=== PATIENT | female | born 1995 | race Caucasian/White ===

== ENCOUNTER 2016-03-26 01:15 | Emergency (ER) | payer OTHER ==
[~2016-03-26] VITALS: Ht 167.6 cm; Wt 59.0 kg
[~2016-03-26 01:15] MED LIST: ADDERALL20 MG PO; ALBUTEROL0.09 MG/A2 INH; ATIVAN1 MG PO; BACTRIM DS 8001 TA1 PO; BACTROBAN CREAM15 GM NAS; BIRTH CONTROL1 EAC1 PO; BIRTH CONTROL1 EACH PO; CIPRO250 MG PO; CLARITIN-D 10 M1 T24 PO; CRANBERRY250 MG PO; MOTRIN400 MG PO; MOTRIN600 MG PO; MOTRIN800 MG PO; PREDNICOT20 MG PO; PREDNISONE20 MG PO; PRILOSEC20 M2 PO; PYRIDIUM100 MG PO; TESSALON PERLE100 M1 PO; ULTRAM50 MG PO; VIBRAMYCIN100 MG PO; ZITHROMAX Z PA250 MG PO; ZITHROMAX250 MG PO; ZOFRAN4 MG PO; ZOLOFT50 MG PO; ZYRTEC10 M2 PO; ZYRTEC10 MG PO
[2016-03-26] MEDS ORDERED: PAXIL10 MG PO (01:29)
[2016-03-26] MEDS ORDERED: ADDERALL XR 3030 MG PO (01:29)
[2016-03-26 02:26] LABS: BASO % 0.2 % (0.0-1.0); EOS % 0.5 % (1.0-4.0); HEMATOCRIT 35.2 % (37.0-47.0); HEMOGLOBIN 12.3 g/dl (12.0-16.0); LYMPH # 2.4 10*3/uL (1.3-4.4); MEAN CORPUSCULAR HGB 29.4 pg (27.0-31.0); MEAN CORPUSCULAR HGB CONC 34.9 g/dl (33.0-37.0); MEAN PLATELET VOLUME 9.3 fl (9.6-12.3); MONO # 0.6 10*3/uL (0.1-1.0); MONO % 6.7 % (3.0-9.0); NEUT # 5.6 10*3/uL (2.3-7.9); NEUT % 64.4 % (47.0-73.0); PLATELET COUNT AUTOMATED 238 10*3/uL (130-400); RED BLOOD COUNT 4.19 10*6/uL (4.10-5.10); RED CELL DISTRI WIDTH 12.6 % (0-14.5); WHITE BLOOD COUNT 8.7 10*3/uL (4.8-10.8)
[2016-03-26 02:37] LABS: PROTHROMBIN TIME 10.9 SECONDS (9.0-12.4)
[2016-03-26 02:41] LABS: ALKALINE PHOSPHATASE 80 U/L (45-117); BILIRUBIN, TOTAL 0.9 mg/dl (0.2-1.0); BUN 8 mg/dl (7-24); CARBON DIOXIDE 27 mmol/L (21-32); CHLORIDE 108 mmol/L (98-107); EST GLOM FILT AFRICAN AMERICAN > 60 ml/min; GLUCOSE 80 mg/dL (65-99); POTASSIUM 3.4 mmol/L (3.5-5.1); SGOT/AST 15 IU/L (3-35); SGPT/ALT 21 U/L (12-78); SODIUM 145 mmol/L (136-145); TOTAL PROTEIN 7.3 gm/dL (6.4-8.2)
[2016-03-26] MEDS ORDERED: TYLENOL325 M2 PO (03:00)
== END 2016-03-26 03:46 | disposition home or self-care (01) ==
LOC: ED 01:15
PROVIDERS: Student in an Organized Health Care Education/Training Program
DX: I77.6 Arteritis, unspecified (principal); F41.9 Anxiety disorder, unspecified; Z88.0 Allergy status to penicillin; Z88.1 Allergy status to other antibiotic agents

== ENCOUNTER 2016-12-20 20:11 | Emergency (ER) | payer OTHER ==
[~2016-12-20] VITALS: Ht 165.1 cm; Wt 68.0 kg
[~2016-12-20 20:11] MED LIST changes: +ADDERALL XR 3030 MG PO; +PAXIL10 MG PO; +TYLENOL325 M2 PO
[2016-12-20] MEDS ORDERED: CYCLOBENZAPRINE5 M3 PO (21:46)
== END 2016-12-20 22:05 | disposition home or self-care (01) ==
LOC: ED 20:11
DX: S46.812A Strain of other muscles, fascia and tendons at shoulder and upper arm level, left arm, initial encounter (principal); Z79.899 Other long term (current) drug therapy; Z88.0 Allergy status to penicillin; Z88.1 Allergy status to other antibiotic agents; X50.9XXA Other and unspecified overexertion or strenuous movements or postures, initial encounter; Y93.89 Activity, other specified; Y92.69 Other specified industrial and construction area as the place of occurrence of the external cause; Y99.9 Unspecified external cause status

== ENCOUNTER 2017-01-29 18:14 | Emergency (ER) | payer OTHER ==
[~2017-01-29] VITALS: Wt 72.6 kg
[~2017-01-29 18:14] MED LIST changes: +CYCLOBENZAPRINE5 M3 PO
[2017-01-29 18:49] LABS: BASO % 0.1 % (0.0-1.0); EOS # 0.1 10*3/uL (0.0-0.4); EOS % 0.9 % (1.0-4.0); HEMATOCRIT 38.8 % (37.0-47.0); HEMOGLOBIN 13.2 g/dl (12.0-16.0); LYMPH % 29.1 % (27.0-41.0); MEAN CELL VOLUME 85.7 fl (81.0-99.0); MEAN CORPUSCULAR HGB 29.1 pg (27.0-31.0); MEAN PLATELET VOLUME 9.5 fl (9.6-12.3); MONO # 0.4 10*3/uL (0.1-1.0); MONO % 6.4 % (3.0-9.0); NEUT # 4.2 10*3/uL (2.3-7.9); NEUT % 63.2 % (47.0-73.0); PLATELET COUNT AUTOMATED 252 10*3/uL (130-400); RED BLOOD COUNT 4.53 10*6/uL (4.10-5.10); RED CELL DISTRI WIDTH 12.3 % (0-14.5); WHITE BLOOD COUNT 6.7 10*3/uL (4.8-10.8)
[2017-01-29 19:02] LABS: BUN 6 mg/dl (7-24); CHLORIDE 105 mmol/L (98-107); CREATININE 0.62 mg/dL (0.55-1.02); POTASSIUM 3.5 mmol/L (3.5-5.1); SODIUM 140 mmol/L (136-145)
[2017-01-29 19:05] LABS: ACT PARTIAL THROMBO TIME 23.5 SECONDS (20.8-31.5)
[2017-01-29] MEDS ORDERED: KEFLEX500 M1 PO (19:23)
== END 2017-01-29 19:20 | disposition home or self-care (01) ==
LOC: ED 18:14
PROVIDERS: Emergency Medicine
DX: S91.331A Puncture wound without foreign body, right foot, initial encounter (principal); R07.89 Other chest pain; Z79.899 Other long term (current) drug therapy; Z88.0 Allergy status to penicillin; Z88.1 Allergy status to other antibiotic agents; W22.8XXA Striking against or struck by other objects, initial encounter; Y93.89 Activity, other specified; Y92.89 Other specified places as the place of occurrence of the external cause; Y99.9 Unspecified external cause status

== ENCOUNTER 2017-03-22 16:39 | Emergency (ER) | payer OTHER ==
[~2017-03-22] VITALS: Ht 162.5 cm; Wt 74.4 kg
[~2017-03-22 16:39] MED LIST changes: +KEFLEX500 M1 PO
[2017-03-22] MEDS ORDERED: Motrin,Rufen800 MG PO (18:38)
== END 2017-03-22 21:14 | disposition home or self-care (01) ==
LOC: ED 16:39
DX: S40.011A Contusion of right shoulder, initial encounter (principal); F17.200 Nicotine dependence, unspecified, uncomplicated; Z88.0 Allergy status to penicillin; Z88.1 Allergy status to other antibiotic agents; Z79.899 Other long term (current) drug therapy; W01.0XXA Fall on same level from slipping, tripping and stumbling without subsequent striking against object, initial encounter; Y93.89 Activity, other specified; Y92.89 Other specified places as the place of occurrence of the external cause; Y99.8 Other external cause status

== ENCOUNTER → 2017-05-18 | Outpatient (CLI) | payer OTHER ==
[~2017-05-18] MED LIST changes: +Motrin,Rufen800 MG PO
[2017-05-18 11:55] LABS: ALBUMIN 3.5 gm/dl (3.1-4.5); ALKALINE PHOSPHATASE 84 U/L (45-117); BUN 7 mg/dl (7-24); CHLORIDE 106 mmol/L (98-107); CREATININE 0.73 mg/dL (0.55-1.02); POTASSIUM 3.7 mmol/L (3.5-5.1); SGOT/AST 19 IU/L (3-35); SGPT/ALT 20 U/L (12-78); SODIUM 138 mmol/L (136-145); TOTAL PROTEIN 7.4 gm/dL (6.4-8.2); URIC ACID 3.9 mg/dL (2.6-6.0)
[2017-05-19 08:09] LABS: RHEUMATOID ARTHRITIS FACTOR <10.0 IU/mL (0.0-13.9)
[2017-05-19 17:05] LABS: ANTI-SMOOTH MUSCLE ANTIBODY 10 Units (0-19)
== END | disposition home or self-care (01) ==
LOC: LAB 11:12
PROVIDERS: Pediatrics
DX: M25.50 Pain in unspecified joint (principal); M79.1 Myalgia

== ENCOUNTER → 2017-12-13 | Outpatient (CLI) | payer OTHER ==
[2017-12-13 11:02] LABS: BASO % 0.3 % (0.0-1.0); EOS # 0.1 10*3/uL (0.0-0.4); EOS % 1.2 % (1.0-4.0); HEMATOCRIT 41.8 % (37.0-47.0); HEMOGLOBIN 14.2 g/dl (12.0-16.0); LYMPH # 1.9 10*3/uL (1.3-4.4); MEAN CELL VOLUME 86.2 fl (81.0-99.0); MEAN CORPUSCULAR HGB 29.3 pg (27.0-31.0); MEAN PLATELET VOLUME 9.3 fl (9.6-12.3); MONO # 0.5 10*3/uL (0.1-1.0); MONO % 7.3 % (3.0-9.0); NEUT # 4.3 10*3/uL (2.3-7.9); NEUT % 62.9 % (47.0-73.0); PLATELET COUNT AUTOMATED 294 10*3/uL (130-400); RED BLOOD COUNT 4.85 10*6/uL (4.10-5.10); RED CELL DISTRI WIDTH 12.7 % (0-14.5); WHITE BLOOD COUNT 6.8 10*3/uL (4.8-10.8)
[2017-12-13 11:18] LABS: ALBUMIN 3.3 gm/dl (3.1-4.5); ALKALINE PHOSPHATASE 97 U/L (45-117); BUN 8 mg/dl (7-24); CHLORIDE 105 mmol/L (98-107); CHOLESTEROL 161 mg/dL (<200); CPK 38 U/L (26-192); CREATININE 0.72 mg/dL (0.55-1.02); HDL CHOLESTEROL 48 mg/dl (40-60); LDL CHOLESTEROL 94 mg/dL (9-159); POTASSIUM 4.1 mmol/L (3.5-5.1); SGOT/AST 14 IU/L (3-35); SGPT/ALT 19 U/L (12-78); SODIUM 140 mmol/L (136-145); T3 UPTAKE 30 % (31-39); TOTAL PROTEIN 7.1 gm/dL (6.4-8.2); TRIGLYCERIDES 94 mg/dl (<150); VLDL CHOLESTEROL 19 mg/dL (6-40)
[2017-12-13 11:24] LABS: THYROID STIM HORMONE (HS) 0.994 uIU/ml (0.358-4.75); THYROXINE (T4) TOTAL 12.5 ug/dl (4.8-13.9)
[2017-12-15 18:02] LABS: CREATININE, RANDOM URINE 88.9 mg/dL (Not Estab.); METANEPH-CREAT RATIO 0.4 (0.0-1.0)
== END | disposition home or self-care (01) ==
LOC: LAB 10:40
PROVIDERS: Pediatrics
DX: Z00.00 Encounter for general adult medical examination without abnormal findings (principal)

== ENCOUNTER → 2018-04-14 | Outpatient (CLI) | payer OTHER | END | disposition home or self-care (01) | LOC: LAB 16:40 | DX: N39.0 Urinary tract infection, site not specified (principal) ==

== ENCOUNTER → 2018-12-18 | Outpatient (CLI) | payer OTHER ==
[2018-12-18 17:50] LABS: BASO % 0.1 % (0.0-1.0); EOS # 0.1 10*3/uL (0.0-0.4); EOS % 0.6 % (1.0-4.0); HEMATOCRIT 41.6 % (37.0-47.0); HEMOGLOBIN 13.9 g/dl (12.0-16.0); LYMPH # 2.3 10*3/uL (1.3-4.4); LYMPH % 25.5 % (27.0-41.0); MEAN CELL VOLUME 88.5 fl (81.0-99.0); MEAN CORPUSCULAR HGB 29.6 pg (27.0-31.0); MEAN CORPUSCULAR HGB CONC 33.4 g/dl (33.0-37.0); MEAN PLATELET VOLUME 9.8 fl (9.6-12.3); MONO # 0.5 10*3/uL (0.1-1.0); MONO % 5.8 % (3.0-9.0); NEUT % 67.8 % (47.0-73.0); PLATELET COUNT AUTOMATED 302 10*3/uL (130-400); RED CELL DISTRI WIDTH 12.8 % (0-14.5); WHITE BLOOD COUNT 8.9 10*3/uL (4.8-10.8)
[2018-12-18 18:25] LABS: ALBUMIN 3.3 gm/dl (3.1-4.5); BUN 9 mg/dl (7-24); CHLORIDE 109 mmol/L (98-107); CREATININE 0.82 mg/dL (0.55-1.02); POTASSIUM 3.8 mmol/L (3.5-5.1); SGOT/AST 9 IU/L (3-35); SGPT/ALT 20 U/L (12-78); SODIUM 139 mmol/L (136-145); TOTAL PROTEIN 7.4 gm/dL (6.4-8.2)
[2018-12-18 18:30] LABS: ALKALINE PHOSPHATASE 85 U/L (45-117); CHOLESTEROL 173 mg/dL (<200); CPK 66 U/L (26-192); HDL CHOLESTEROL 32 mg/dl (40-60); LDL CHOLESTEROL 114 mg/dL (9-159); TRIGLYCERIDES 133 mg/dl (<150); VLDL CHOLESTEROL 27 mg/dL (6-40)
[2018-12-20 16:07] LABS: CREATININE, RANDOM URINE 85.3 mg/dL (Not Estab.); METANEPH-CREAT RATIO 0.4 (0.0-1.0)
== END | disposition home or self-care (01) ==
LOC: LAB 17:17
PROVIDERS: Pediatrics
DX: R03.0 Elevated blood-pressure reading, without diagnosis of hypertension (principal)

== ENCOUNTER → 2020-07-04 | Outpatient (CLI) | payer OTHER | END | disposition home or self-care (01) | LOC: COVID19 14:23 | PROVIDERS: ATTEND Pediatrics | DX: R05 Cough (principal); R06.2 Wheezing; Z20.822 Contact with and (suspected) exposure to COVID-19 ==